=== PATIENT | male | born 1975 | race Hispanic/Latino ===

== ENCOUNTER 2017-05-09 09:55 | Emergency (ER) | payer OTHER ==
[~2017-05-09] VITALS: Ht 165.1 cm; Wt 65.8 kg
[~2017-05-09 09:55] MED LIST: CARBAMAZEPINE400 MG PO; CYCLOBENZAPRINE10 M1 PO; CYCLOBENZAPRINE10 M3 PO; DELTASONE20 MG PO; HYDROXYZINE HCL25 MG PO; KEFLEX500 M1 PO; LEVETIRACETAM500 M2 PO; LEVETIRACETAM500 MG PO; LIORESAL 10MG T10 MG PO; MOTRIN 600 MG600 MG PO; NAPROXEN500 MG PO; PANTOPRAZOLE SO40 M1 PO; PEPCID 20MG TAB20 MG PO; PERCOCET 5-3251 EACH PO; PREDNICOT10 MG PO; PREDNISONE 20MG20 MG PO; PRINIVIL10 M1 PO; TRAMADOL HCL50 M1 PO; TRAMADOL HCL50 MG PO; TRAMADOL50 MG PO
[2017-05-09 09:57] VITALS: BP 152/87
--- NOTE | 2017-05-09 10:10 | ED NECK/BACK PAIN COMPLAINT ---
History of Present Illness General Chief Complaint: Low Back Pain/Injury Stated Complaint: BACK PAIN, CHRONIC Source: patient Exam Limitations: no limitations Vital Signs & Intake/Output Vital Signs & Intake/Output Vital Signs Date Time Temp Pulse Resp B/P B/P Pulse O2 O2 Flow FiO2 Mean Ox Delivery Rate 05/09 0957 96.8 79 18 152/87 99 Room Air Room Air Allergies Coded Allergies: aspirin (INCREASED FREQUENCY OF SEIZURES WHEN HE WAS TAKING TEGRETOL 05/09/17) Reconcile Medications Cyclobenzaprine HCl 10 MG TABLET 1 TAB PO QPM MUSCLE RELAXOR Levetiracetam 500 MG TABLET 2 TAB PO QAM SEZIURES (Reported) Lisinopril (Prinivil) 10 MG TABLET 1 TAB PO DAILY BP (Reported) Meloxicam (Mobic) 15 MG TABLET 1 TAB PO DAILY PRN PAIN/INFLAMMATION Methylprednisolone. (Medrol) 4 MG TAB.DS.PK 1 DP PO AD INFLAMMATION 6 on day 1 then reduce by one tablet daily until gone Pantoprazole Sodium 40 MG TABLET.DR 1 TAB PO DAILY GI (Reported) Triage Note: PT TO ED WITH C/O CHRONIC BACK PAIN, WORSE THE LAST 2 DAYS, DENIES FALL OR INJURY TO THE AREA. 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 Triage Nurses Notes Reviewed? 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 Patient denies any bowel or bladder continence saddle paresthesia fever chills abdominal pain extremity swelling or weakness. Patient has not taken any medications for symptoms. Patient does state that for the past 2 days he has had days off work which has not improved his symptoms with rest. Patient does state that he has a remote history of surgical intervention for his "disc issue" Past History Travel History Traveled to [place] past 21 day No Medical History Any Pertinent Medical History? 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 No Review of Systems Review of Systems Constitutional: Reports: no symptoms. Eyes: Reports: no symptoms. Ears, Nose, Throat, Mouth: Reports: no symptoms. Respiratory: Reports: no symptoms. Cardiovascular: Reports: no symptoms. Gastrointestinal/Abdominal: Reports: no symptoms. Musculoskeletal: Reports: see HPI, back pain, muscle pain, muscle stiffness. Skin: Reports: no symptoms. Neurological/Psychological: Reports: see HPI, paresthesia. All Other Systems: Reviewed and Negative Physical Exam Physical Exam General Appearance: alert, awake, mild distress Head: atraumatic Eyes: Bilateral: normal appearance. Ears, Nose, Throat, Mouth: hearing grossly normal, moist mucous membrane Neck: normal inspection, supple, full range of motion Respiratory: normal breath sounds, chest non-tender Cardiovascular: regular rate/rhythm Gastrointestinal: normal bowel sounds, soft, non-tender Back: no central spinous tenderness left lateral muscular point tenderness decreased active range of motion Extremities: normal range of motion Neurologic/Psych: no motor/sensory deficits, awake, alert, oriented x 3, normal gait Skin: intact, normal color Comments: SLR- LEFT LEG, PAIN WITH 60 DEGREES OF HIP FLEXION Bilateral lower extremity myotomes dermatomes DTRs intact Core Measures CVA/TIA Diagnosis: No Progress Differential Diagnosis: AAA, aortic dissection, C spine injury, carotid dissection, cauda equina syn, herniated disc, myofascial strain, pyelo/UTI, sciatica, spinal cord inj, thoracic outlet syn, T/L spine injury, ureterolithiasis Plan of Care: On examination patient denies any mechanism of injury or trauma no central spinous tenderness patient does have reproducible lateral left-sided muscular point tenderness No concerns of CAUDA EQUINA syndrome Patient was neurovascularly intact to the left lower extremity myotome's intact No concerns of discitis or spinal abscess Due to history of present illness and exam findings or suspicion of lumbar radiculopathy and low back pain No emergent warranting of imaging at this time Departure Departure Disposition: HOME OR SELF CARE Condition: Stable Clinical Impression Primary Impression: Lumbar radiculopathy Secondary Impressions: Low back pain Referrals: Jamilah Silveira APRN (PCP/Family) Additional Instructions: As discussed begin icing the area directly 20 minutes every 2 hours, begin the prescription meloxicam for pain and inflammation, begin the prescription of Medrol Dosepak for inflammation, begin the prescription of cyclobenzaprine for muscle relaxation, if no better on Sunday follow-up with your doctor, symptoms worsen return to emergency room, prescriptions are waiting at [facility]. Departure Forms: Customer Survey General Discharge Information Prescriptions: Current Visit Scripts Meloxicam (Mobic) 1 TAB PO DAILY PRN PAIN/INFLAMMATION #10 TAB Cyclobenzaprine HCl 1 TAB PO QPM #7 TAB Methylprednisolone. (Medrol) 1 DP PO AD #1 DP 6 on day 1 then reduce by one tablet daily until gone
[2017-05-09] MEDS ORDERED: MOBIC15 M1 PO (10:25)
[2017-05-09] MEDS ORDERED: MEDROL4 M2 PO (10:25)
[2017-05-09] MEDS ORDERED: CYCLOBENZAPRINE10 M1 PO (10:25)
== END 2017-05-09 10:40 ==
LOC: ERH 09:55
DX: M54.16 Radiculopathy, lumbar region (principal)

== ENCOUNTER 2017-09-02 14:22 | Emergency (ER) | payer OTHER ==
[~2017-09-02] VITALS: Ht 165.1 cm; Wt 68.0 kg
[~2017-09-02 14:22] MED LIST changes: +MEDROL4 M2 PO; +MOBIC15 M1 PO
[2017-09-02 15:03] LABS: ABSOLUTE BASOPHIL COUNT 0 /CUMM (0.0-0.2); ABSOLUTE EOSINOPHIL COUNT 0.4 /CUMM (0.0-0.7); ABSOLUTE GRANULOCYTE CT 3.3 /CUMM (1.4-6.5); ABSOLUTE LYMPH COUNT 2.9 /CUMM (1.2-3.4); ABSOLUTE MONOCYTE COUNT 0.5 /CUMM (0.10-0.60); BASOPHIL % 0.5 % (0.0-2.0); EOSINOPHIL % 5.7 % (0-5); GRANULOCYTE % 46.2 % (42.2-75.2); HEMATOCRIT 39.1 % (42-52); MEAN CORPUSCULAR HGB 33.8 PG (27.0-31.0); MEAN CORPUSCULAR HGB CONC 34.6 G/DL (33.0-37.0); MEAN CORPUSCULAR VOLUME 97.7 FL (80.0-94.0); MEAN PLATELET VOLUME 8.1 FL (7.4-10.4); PLATELET COUNT 271 /CUMM (130-400); WHITE BLOOD CELL COUNT 7.1 /CUMM (4.8-10.8)
--- NOTE | 2017-09-02 15:53 | CT SCAN REPORT ---
EXAMINATION: CT ABD PELVIS W/O IV CONTRAS CLINICAL INFORMATION: Kidney stones COMPARISON: None TECHNIQUE: Multidetector volumetric imaging was performed from the superior aspect of the liver through the pubic symphysis 100 mL of Omnipaque 300 injected Sagittal and coronal reformatted images were obtained on the technologist's workstation. DLP: 246 mGy-cm FINDINGS: LOWER THORAX: Included lung bases are clear. HEPATOBILIARY: No focal hepatic lesions. No biliary ductal dilatation. GALLBLADDER: Gallbladder unremarkable. SPLEEN: Spleen is normal in size. PANCREAS: No focal mass or ductal dilatation. STOMACH AND GASTROINTESTINAL TRACT: Stomach is grossly unremarkable. There is no bowel distention or thickening. No CT evidence of appendicitis. ADRENALS: No adrenal nodules. KIDNEYS/URETERS: No hydronephrosis, stones or solid mass lesions. URINARY BLADDER: Unremarkable PELVIC VISCERA: Unremarkable PERITONEUM: No free air or fluid. LYMPH NODES: No lymphadenopathy. VASCULAR:Abdominal aorta normal in size, no aneurysm found. BONES, ABDOMINAL WALL AND SOFT TISSUES: Age-appropriate changes of the spine and skeletal system, no destructive osteolytic or osteosclerotic bone lesion found IMPRESSION: 1. No CT evidence of kidney stones, no hydronephrosis. 2. No CT evidence of acute intra-abdominal process to explain patient's pain symptoms. 3. Mild degenerative changes of the spine appropriate for patient's age.
--- NOTE | 2017-09-02 16:53 | ED GI/GU/ABDOMINAL COMPLAINT ---
History of Present Illness General Chief Complaint: Abdominal Pain/Flank Pain Stated Complaint: LEFT FLANK PAIN Source: patient Exam Limitations: no limitations Vital Signs & Intake/Output Vital Signs & Intake/Output Vital Signs Date Time Temp Pulse Resp B/P B/P Pulse O2 O2 Flow FiO2 Mean Ox Delivery Rate 09/02 1750 98.1 60 16 135/85 98 Room Air 09/02 1613 Room Air 09/02 1609 98.0 60 18 123/71 97 Room Air 09/02 1428 98.7 77 18 124/79 96 Room Air Allergies Coded Allergies: aspirin (INCREASED FREQUENCY OF SEIZURES WHEN HE WAS TAKING TEGRETOL 05/09/17) Reconcile Medications Cyclobenzaprine HCl 10 MG TABLET 1 TAB PO TID SPASMS Ibuprofen 800 MG TABLET 1 TAB PO TID pain Levetiracetam 500 MG TABLET 2 TAB PO QAM SEZIURES (Reported) Lisinopril (Prinivil) 10 MG TABLET 1 TAB PO DAILY BP (Reported) Naproxen 500 MG TABLET 1 TAB PO BID PRN PAIN/INFLAMMATION (Reported) Pantoprazole Sodium 40 MG TABLET.DR 1 TAB PO DAILY GI (Reported) Triage Note: PT FROM HOME C/O LT FLANK PAIN X3 DAYS. PT STATES THAT PAIN IS 9/10 RADIATING FROM FLANK TO ABD. PT DENIES N/V/D, UTI S/S. VSS. NO ACUTE DISTRESS NOTED CURRENTLY. Triage Nurses Notes Reviewed? yes Duration: day(s): (few), constant Timing: recent history Location: left flank HPI: 42yo male with PMH of epilepsy, HTN, GERD c/o worsening L sided abdominal and flank pain. 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 Describes the pain as "knife twisting in my back" and sharp. Pain left flank wraps around left lower abdomen. Notes that walking and deeper breaths exacerbate pain. Pt tried hot showers and stretching without any relief, denies taking any pain medications. Denies any trauma or injury to the area. Denies chest pain, fevers, chills, headaches, dysuria, or change in bowel movements. 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 (Tez MAJOR,Reji) Past History Travel History Traveled to [place] past 21 day No Medical History Any Pertinent Medical History? see below for history Neurological: seizure EENT: NONE Cardiovascular: hypertension Respiratory: NONE Gastrointestinal: GERD Hepatic: NONE Renal: NONE Musculoskeletal: disk herniation Psychiatric: anxiety Endocrine: NONE Blood Disorders: NONE Cancer(s): NONE R D INTERNSHIP/Reproductive: NONE History of MRSA: No History of VRE: No History of CDIFF: No Tetanus Vaccine: 06/20/15 Surgical History Surgical History: Excision of herniated extruded disc at L4-L5 Psychosocial History Who do you live with Spouse Services at Home None What is your primary language Malay Tobacco Use: Current Daily Use Daily Tobacco Use Amount/Type: => 5 Cigarettes daily ETOH Use: occasional use Illicit Drug Use: marijuana Family History Hx Contributory? No (Reji Webber) Review of Systems Review of Systems Constitutional: Reports: no symptoms, see HPI. EENTM: Reports: no symptoms. Respiratory: Reports: no symptoms. Cardiovascular: Reports: no symptoms. GI: Reports: see HPI, abdominal pain. Genitourinary: Reports: no symptoms. Musculoskeletal: Reports: see HPI, back pain (L flank pain). Skin: Reports: no symptoms. Neurological/Psychological: Reports: no symptoms. Hematologic/Endocrine: Reports: no symptoms. Immunologic/Allergic: Reports: no symptoms. All Other Systems: Reviewed and Negative (Reji Webber) Physical Exam Physical Exam General Appearance: well developed/nourished, no apparent distress, alert, awake Head: atraumatic, normal appearance Eyes: Bilateral: normal appearance, PERRL, EOMI. Ears, Nose, Throat, Mouth: hearing grossly normal Neck: normal inspection, supple, full range of motion Respiratory: normal breath sounds, chest non-tender Cardiovascular: regular rate/rhythm Gastrointestinal: normal bowel sounds, soft, non-tender Rectal: deferred Back: normal inspection, tenderness over left paraspinal region, pain with lateral roatation of back Extremities: normal range of motion Neurologic/Psych: awake, alert, oriented x 3, normal gait, normal mood/affect Skin: intact, normal color, warm/dry, no rash aprreciated Core Measures ACS in differential dx? No No ASA d/t Allergy Sepsis Present: No Sepsis Focused Exam Completed? No (Reji Webber) Progress Differential Diagnosis: PUD/GERD, ureterolithiasis, UTI/pyelo, muscle strain/ spasms, shinhgles Plan of Care: Orders Procedure Date/time Status URINALYSIS 09/02 1425 Complete COMPREHENSIVE METABOLIC PANEL 09/02 1425 Complete CBC WITHOUT DIFFERENTIAL 09/02 1425 Complete Current Medications Sig/Cuate Start time Last Medication Dose Stop Time Status Admin Morphine Sulfate 4 MG ONCE ONE 09/02 1644 CAN (MORPHINE SULFATE) 09/02 1645 Laboratory Tests 09/02/17 1715: Urine Color YEL, Urine Clarity CLEAR, Urine pH 6.0, Ur Specific Dana >= 1.030 , Urine Protein NEG, Urine Ketones TRACE H, Urine Nitrite NEG, Urine Bilirubin NEG, Urine Urobilinogen 0.2, Ur Leukocyte Esterase NEG, Ur Microscopic EXAM NOT REQUIRED, Urine Hemoglobin NEG, Urine Glucose NEG 09/02/17 1456: Anion Gap 11, Estimated GFR > 60, BUN/Creatinine Ratio 20.0, Glucose 91, Calcium 9.3, Total Bilirubin 0.4, AST 24, ALT 25, Alkaline Phosphatase 74, Total Protein 6.8, Albumin 4.2, Globulin 2.6, Albumin/Globulin Ratio 1.6, CBC w Diff NO MAN DIFF REQ, RBC 4.00 L, MCV 97.7 H, MCH 33.8 H, MCHC 34.6, RDW 13.0, MPV 8.1, Gran % 46.2, Lymphocytes % 40.9, Monocytes % 6.7, Eosinophils % 5.7 H, Basophils % 0.5, Absolute Granulocytes 3.3, Absolute Lymphocytes 2.9, Absolute Monocytes 0.5, Absolute Eosinophils 0.4, Absolute Basophils 0 Diagnostic Imaging: Viewed by Me: CT Scan. Discussed w/RAD: CT Scan. Radiology Impression: PATIENT: CALVIN DE LA GARZA PRESENT AGE: 42 PATIENT ACCOUNT NO: [id number] : 73 LOCATION: [facility] ORDERING PHYSICIAN: Aquiles MAJOR SERVICE DATE: 09/02/17 EXAM TYPE: CAT - CT ABD & PELVIS W/O IV CONTRAS EXAMINATION: CT ABD PELVIS W/O IV CONTRAS CLINICAL INFORMATION: Kidney stones COMPARISON: None TECHNIQUE: Multidetector volumetric imaging was performed from the superior aspect of the liver through the pubic symphysis 100 mL of Omnipaque 300 injected Sagittal and coronal reformatted images were obtained on the technologist's workstation. DLP: 246 mGy-cm FINDINGS : LOWER THORAX: Included lung bases are clear. HEPATOBILIARY: No focal hepatic lesions. No biliary ductal dilatation. GALLBLADDER: Gallbladder unremarkable. SPLEEN: Spleen is normal in size. PANCREAS: No focal mass or ductal dilatation. STOMACH AND GASTROINTESTINAL TRACT: Stomach is grossly unremarkable. There is no bowel distention or thickening. No CT evidence of appendicitis. ADRENALS: No adrenal nodules. KIDNEYS/URETERS: No hydronephrosis, stones or solid mass lesions. URINARY BLADDER: Unremarkable PELVIC VISCERA: Unremarkable PERITONEUM: No free air or fluid. LYMPH NODES: No lymphadenopathy. VASCULAR:Abdominal aorta normal in size, no aneurysm found. BONES, ABDOMINAL WALL AND SOFT TISSUES: Age- appropriate changes of the spine and skeletal system, no destructive osteolytic or osteosclerotic bone lesion found IMPRESSION: 1. No CT evidence of kidney stones, no hydronephrosis. 2. No CT evidence of acute intra-abdominal process to explain patient's pain symptoms. 3. Mild degenerative changes of the spine appropriate for patient's age. DICTATED BY: Pricilla Allen MD DATE/TIME DICTATED:09/02/171534 RETAIL ANALYST:NGHIA DATE/TIME TRANSCRIBED:1534 CONFIDENTIAL, DO NOT COPY WITHOUT APPROPRIATE AUTHORIZATION. < Electronically signed in Other Vendor System> SIGNED BY: Alejandro SIN, Hadeer 09/02/17 1986 Initial ED EKG: none (Reji Webber) Departure Departure Disposition: HOME OR SELF CARE Condition: Stable Clinical Impression Primary Impression: Muscle spasm of back Referrals: Jamilah Silveira APRN (PCP/Family) Additional Instructions: Take ibuprofen and Flexeril as prescribed. Follow-up with your primary care doctor. Return if any concerns worsening symptoms. Please go over all results of today's visit with your primary care doctor. Contact your primary care doctor to let them know you were here in the emergency room. There may be nonspecific findings which may not be related to your visit today here in the emergency room but may require further evaluation and chronic monitoring by your primary care doctor. If you had a laceration today the chance of foreign body always remains. You should follow-up with your primary care doctor for recheck in 3-5 days for a wound check. If you had an x-ray done there is a chance that a fracture could have been missed on initial read and you should follow-up with your primary care doctor for repeat x-rays if symptoms persist. If your blood pressure was elevated here in the emergency room please have rechecked by hyour primary care doctor within the next 48. If you were prescribed a narcotic here in the emergency room or any type of controlled substances you're not allowed to drive while taking this medication or operate any type of heavy machinery. Narcotics can make you feel lightheaded dizziness nausea and can cause constipation. You may need to bulk picker a stool softener. Thank you for choosing [facility] emergency room. Please return to the emergency room immediately if you have any other concerns worsening of symptoms. Departure Forms: Customer Survey General Discharge Information Prescriptions: Current Visit Scripts Ibuprofen 1 TAB PO TID #30 TAB Cyclobenzaprine HCl 1 TAB PO TID #30 TAB Comments 09/02/2017 6:34:42 PM Patient clinically looks well. Patient is no apparent distress. Nontoxic- appearing. Symptoms are most consistent with muscular pain. (Reji Webber) PA/AIR EXPORT AGENT Co-Sign Statement Statement: ED Attending supervision documentation- [] I saw and evaluated the patient. I have also reviewed all the pertinent lab results and diagnostic results. I agree with the findings and the plan of care as documented in the PA's/AIR EXPORT AGENT's documentation. [x] I have reviewed the ED Record and agree with the PA's/AIR EXPORT AGENT's documentation. [] Additions or exceptions (if any) to the PAs/AIR EXPORT AGENT's note and plan are summarized below: [] (Norma SIN,Tyson)
[2017-09-02] MEDS ORDERED: NAPROXEN500 M2 PO (17:31)
[2017-09-02] MEDS ORDERED: IBUPROFEN800 M1 PO (17:41)
[2017-09-02] MEDS ORDERED: CYCLOBENZAPRINE10 M1 PO (17:41)
[2017-09-02 17:50] VITALS: BP 135/85
== END 2017-09-02 17:52 ==
LOC: ERH 14:22
PROVIDERS: Physician Assistant Medical
DX: M62.830 Muscle spasm of back (principal)
CPT/HCPCS: 74176; 81003; 96372; J1885